=== PATIENT | male | born 1950 | race Two or more races ===

== ENCOUNTER → 2020-07-09 | Day surgery (SDC) | payer OTHER ==
[~2020-07-09] VITALS: Ht 180.3 cm; Wt 86.2 kg
[~2020-07-09] MED LIST: ADULT LOW DOSE81 M1 PO; HYDROCHLOROTHIA25 MG PO; LIPITOR20 MG PO; METOPROLOL TART50 MG; NORVASC2.5 M1 PO; SYNTHROID112 MCG PO; SYNTHROID137 MCG PO; TOPROL XL50 M1 PO
== END | disposition home or self-care (01) ==
LOC: ADM 07-02 10:15 → EDSTATUS 07-02 10:15 → CIR.AMB → SURH 05:15 → O/R 05:15 → SURH 06:45 → EDSTATUS 10:15 → CIR.AMB 10:15 → O/R 12:10 → CIR.AMB 19:00
PROVIDERS: ATTEND Colon & Rectal Surgery
DX: K38.8 Other specified diseases of appendix (principal); K43.9 Ventral hernia without obstruction or gangrene; Z20.822 Contact with and (suspected) exposure to COVID-19